=== PATIENT | female | born 1940 | race Caucasian/White ===

== ENCOUNTER → 2017-11-10 10:26 | Outpatient (CLI) | payer MEDICARE, SELFPAY ==
[2017-11-10 14:24] LABS: Basophils # 0.1 K/mm3 (0-0.2); Basophils % 1.1 % (0.1-2.0); Eosinophils # 0.1 K/mm3 (0.0-0.4); Hematocrit 46.6 % (37.0-47.0); Hemoglobin 15.3 g/dL (12.2-16.2); Lymphocytes # 1.8 K/mm3 (0.7-4.5); Mean Corpuscular HGB Conc 32.9 g/dL (31.8-35.4); Mean Corpuscular Hemoglobin 30.8 pg (27.0-31.2); Mean Corpuscular Volume 93.6 fl (81-99); Mean Platelet Volume 8.3 fl (7.4-10.4); Monocytes # 0.6 K/mm3 (0.1-1.0); Neutrophils # 6.6 K/mm3 (1.8-7.8); Neutrophils % 71.9 % (37.0-80.0); Platelet Count 360 K/mm3 (142-424); Red Blood Count 4.98 M/mm3 (4.20-5.40); Red Cell Distribution Width 12.7 % (11.5-17.5); White Blood Count 9.2 K/mm3 (4.8-10.8)
[2017-11-10 15:10] LABS: Alanine Aminotransferase 37 U/L (12-78); Albumin Level 4.7 gm/dL (3.4-5.0); Albumin/Globulin Ratio 1.5 (1.1-1.8); Alkaline Phosphatase 111 U/L (46-116); Anion Gap 20.3 mEq/L (5-15); Aspartate Amino Transferase 31 U/L (15-37); Bilirubin,Total 0.6 mg/dL (0.2-1.0); Blood Urea Nitrogen 11 mg/dL (7-18); Calcium 9.9 mg/dL (8.5-10.1); Carbon Dioxide 23 mmol/L (21.0-32.0); Chloride 98 mmol/L (98-107); Chol/HDL Ratio 2.8 (1-3.5); Cholesterol 160 mg/dL (140-200); Creatinine,Serum 0.99 mg/dL (0.55-1.02); Estimated Glomerular Filt Rate 55 ml/min (>60); GFR (African American) 66 ML/MIN (>60); Globulin 3.1 gm/dl (1.3-3.2); Glucose 84 mg/dL (74-106); HDL Cholesterol 58 mg/dL (29-89); LDL Cholesterol 85 mg/dL (0-130); Potassium 4.3 mmoL/L (3.5-5.1); Sodium 137 mmol/L (136-145); Total Protein,Serum 7.8 gm/dL (6.4-8.2); Triglycerides 85 mg/dL (30-200); VLDL Cholesterol 17 mg/dL (0-40)
[2017-11-10 18:25] LABS: T4 (Thyroxine) 11.9 ug/dl (4.7-13.3)
[2017-11-11 20:14] LABS: Vitamin D 25 Hydroxy 31.8 ng/mL (30.0-100.0)
== END ==
PROVIDERS: Visit Provider Emergency Medicine
DX: R53.83 Other fatigue (principal); I10 Essential (primary) hypertension
CPT/HCPCS: 80053; 80061; 82652; 84436; 84443; 85025

== ENCOUNTER → 2018-10-01 13:41 | Outpatient (CLI) | payer MEDICARE, SELFPAY ==
[2018-10-01 14:23] LABS: Alanine Aminotransferase 32 U/L (12-78); Albumin Level 4.2 gm/dL (3.4-5.0); Albumin/Globulin Ratio 1.4 (1.1-1.8); Alkaline Phosphatase 103 U/L (46-116); Anion Gap 14.8 mEq/L (5-15); Aspartate Amino Transferase 31 U/L (15-37); Bilirubin,Total 0.6 mg/dL (0.2-1.0); Blood Urea Nitrogen 13 mg/dL (7-18); Carbon Dioxide 25 mmol/L (21.0-32.0); Chloride 103 mmol/L (98-107); Chol/HDL Ratio 3.2 (1-3.5); Cholesterol 175 mg/dL (140-200); Creatinine,Serum 1.09 mg/dL (0.55-1.02); Estimated Glomerular Filt Rate 49 ml/min (>60); GFR (African American) 59 ML/MIN (>60); Globulin 3.1 gm/dl (1.3-3.2); Glucose 87 mg/dL (74-106); HDL Cholesterol 54 mg/dL (29-89); LDL Cholesterol 107 mg/dL (0-130); Potassium 3.8 mmoL/L (3.5-5.1); Sodium 139 mmol/L (136-145); Thyroid Stimulating Hormone 0.98 uIU/ml (0.358-3.740); Total Protein,Serum 7.3 gm/dL (6.4-8.2); Triglycerides 71 mg/dL (30-200); VLDL Cholesterol 14 mg/dL (0-40)
[2018-10-01 14:32] LABS: Basophils # 0.1 K/mm3 (0-0.2); Basophils % 0.9 % (0.1-2.0); Eosinophils # 0.2 K/mm3 (0.0-0.4); Eosinophils % 1.5 % (0.1-12.0); Hematocrit 44.9 % (37.0-47.0); Hemoglobin 14.4 g/dL (12.2-16.2); Lymphocytes # 2.2 K/mm3 (0.7-4.5); Lymphocytes % 22.2 % (10-50); Mean Corpuscular HGB Conc 32.1 g/dL (31.8-35.4); Mean Corpuscular Hemoglobin 30.3 pg (27.0-31.2); Mean Corpuscular Volume 94.2 fl (81-99); Mean Platelet Volume 8.1 fl (7.4-10.4); Monocytes # 0.5 K/mm3 (0.1-1.0); Monocytes % 4.8 % (1.7-9.3); Neutrophils # 7.1 K/mm3 (1.8-7.8); Neutrophils % 70.6 % (37.0-80.0); Platelet Count 355 K/mm3 (142-424); Red Blood Count 4.76 M/mm3 (4.20-5.40); Red Cell Distribution Width 13.3 % (11.5-17.5)
[2018-10-03 07:57] LABS: Vitamin D 25 Hydroxy 27.3 ng/mL (30.0-100.0)
== END ==
PROVIDERS: Visit Provider Emergency Medicine
DX: I10 Essential (primary) hypertension (principal); E55.9 Vitamin D deficiency, unspecified
CPT/HCPCS: 80053; 80061; 82652; 84439; 84443; 85025

== ENCOUNTER → 2019-11-22 13:17 | Outpatient (CLI) | payer MEDICARE, SELFPAY ==
[2019-11-22 14:53] LABS: Basophils # 0.1 K/mm3 (0-0.2); Basophils % 0.8 % (0.1-2.0); Eosinophils # 0.1 K/mm3 (0.0-0.4); Eosinophils % 1.4 % (0.1-12.0); Hematocrit 45.4 % (37.0-47.0); Hemoglobin 14.5 g/dL (12.2-16.2); Lymphocytes # 1.8 K/mm3 (0.7-4.5); Lymphocytes % 18.9 % (10-50); Mean Corpuscular Hemoglobin 29.2 pg (27.0-31.2); Mean Corpuscular Volume 91.4 fl (81-99); Mean Platelet Volume 8.1 fl (7.4-10.4); Monocytes # 0.6 K/mm3 (0.1-1.0); Monocytes % 6.5 % (1.7-9.3); Neutrophils # 6.9 K/mm3 (1.8-7.8); Neutrophils % 72.3 % (37.0-80.0); Platelet Count 398 K/mm3 (142-424); Red Blood Count 4.96 M/mm3 (4.20-5.40); Red Cell Distribution Width 14.2 % (11.5-17.5); White Blood Count 9.6 K/mm3 (4.8-10.8)
[2019-11-22 15:05] LABS: Alanine Aminotransferase 17 U/L (12-78); Albumin Level 5.1 g/dl (3.5-5.0); Alkaline Phosphatase 115 U/L (38-126); Anion Gap 12.1 mEq/L (5-15); Aspartate Amino Transferase 33 U/L (14-36); Bilirubin,Total 0.6 mg/dl (0.2-1.3); Blood Urea Nitrogen 14 mg/dl (7-17); Calcium 9.5 mg/dl (8.4-10.2); Carbon Dioxide 25 mmol/L (22.0-30.0); Chloride 101 mmol/L (98-107); Estimated Glomerular Filt Rate 61 ml/min (>60); GFR (African American) 73 ML/MIN (>60); Globulin 2.5 g/dL (1.3-3.2); Glucose 100 mg/dl (74-100); Potassium 4.1 mmoL/L (3.5-5.1); Sodium 134 mmol/L (136-145); Total Protein,Serum 7.6 g/dl (6.3-8.2)
[2019-11-22 15:20] LABS: T4 (Thyroxine) 11.3 ug/dl (5.53-11.0)
[2019-11-22 15:33] LABS: Thyroid Stimulating Hormone 0.99 uIU/mL (0.465-4.68)
[2019-11-23 08:15] LABS: Vitamin D 25 Hydroxy 79.6 ng/mL (30.0-100.0)
== END ==
PROVIDERS: Visit Provider Emergency Medicine
DX: E55.9 Vitamin D deficiency, unspecified (principal); I10 Essential (primary) hypertension
CPT/HCPCS: 80053; 82652; 84436; 84443; 85025

== ENCOUNTER → 2021-03-24 14:05 | Outpatient (CLI) | payer MEDICARE, SELFPAY ==
[2021-03-24 14:25] LABS: Alanine Aminotransferase 17 U/L (12-78); Albumin Level 4.4 g/dl (3.5-5.0); Albumin/Globulin Ratio 1.5 (1.1-1.8); Alkaline Phosphatase 102 U/L (38-126); Anion Gap 15.2 mEq/L (5-15); Aspartate Amino Transferase 31 U/L (14-36); Bilirubin,Total 0.7 mg/dl (0.2-1.3); Blood Urea Nitrogen 7 mg/dl (7-17); Calcium 9.6 mg/dl (8.4-10.2); Carbon Dioxide 25 mmol/L (22.0-30.0); Chloride 99 mmol/L (98-107); Chol/HDL Ratio 3.6 (1-3.5); Cholesterol 204 mg/dl (140-200); Estimated Glomerular Filt Rate 69 ml/min (>60); GFR (African American) 84 ML/MIN (>60); Globulin 2.9 g/dL (1.3-3.2); Glucose 94 mg/dl (74-100); HDL Cholesterol 56 mg/dl (40-60); Potassium 4.2 mmoL/L (3.5-5.1); Sodium 135 mmol/L (136-145); Total Protein,Serum 7.3 g/dl (6.3-8.2); Triglycerides 101 mg/dl (30-150); VLDL Cholesterol 20 mg/dL (0-40)
[2021-03-24 14:26] LABS: Basophils # 0.1 K/mm3 (0-0.2); Basophils % 1.1 % (0.1-2.0); Eosinophils # 0.1 K/mm3 (0.0-0.4); Eosinophils % 0.8 % (0.1-12.0); Hematocrit 45.9 % (37.0-47.0); Hemoglobin 14.9 g/dL (12.2-16.2); Lymphocytes # 1.9 K/mm3 (0.7-4.5); Lymphocytes % 23.3 % (10-50); Mean Corpuscular HGB Conc 32.4 g/dL (31.8-35.4); Mean Corpuscular Hemoglobin 30.7 pg (27.0-31.2); Mean Corpuscular Volume 94.6 fl (81-99); Mean Platelet Volume 8.9 fl (7.4-10.4); Monocytes # 0.5 K/mm3 (0.1-1.0); Monocytes % 6.5 % (1.7-9.3); Neutrophils # 5.6 K/mm3 (1.8-7.8); Neutrophils % 68.3 % (37.0-80.0); Platelet Count 440 K/mm3 (142-424); Red Blood Count 4.85 M/mm3 (4.20-5.40); Red Cell Distribution Width 13.4 % (11.5-17.5); White Blood Count 8.2 K/mm3 (4.8-10.8)
[2021-03-24 14:35] LABS: Direct LDL Cholesterol 120.38 mg/dL (100-129)
[2021-03-24 14:42] LABS: Free T4 (Free Thyroxine) 1.24 ng/dl (0.78-2.19)
[2021-03-24 14:56] LABS: Thyroid Stimulating Hormone 0.64 uIU/mL (0.465-4.68)
== END ==
PROVIDERS: Visit Provider Emergency Medicine
DX: E55.9 Vitamin D deficiency, unspecified (principal); I10 Essential (primary) hypertension; R53.83 Other fatigue
CPT/HCPCS: 80053; 80061; 82306; 84439; 84443; 85025

== ENCOUNTER 2021-08-23 04:23 | Emergency (ER) | payer MEDICARE, SELFPAY ==
[2021-08-23 04:25] VITALS: BP 169/74; PULSE 82; RESP 16; TEMP 36.8; O2SAT 99; BMI 16.2
--- NOTE | 2021-08-23 04:35 | XR_ITS ---
PROCEDURE INFORMATION: Exam: XR Left Elbow Exam date and time: 08/23/2021 4:35 AM Age: 81 years old Clinical indication: Injury or trauma; Fall; Blunt trauma (contusions or hematomas); Elbow; Left; Injury date: 08/23/2021 TECHNIQUE: Imaging protocol: XR Left elbow. Views: 1 or 2 views. COMPARISON: No relevant prior studies available. FINDINGS: Bones/joints: No acute fracture. No dislocation. No significant joint effusion. Soft tissues: Unremarkable. IMPRESSION: No fracture.
--- NOTE | 2021-08-23 04:35 | XR_ITS ---
PROCEDURE INFORMATION: Exam: XR Left Shoulder Exam date and time: 08/23/2021 4:35 AM Age: 81 years old Clinical indication: Injury or trauma; Fall; Blunt trauma (contusions or hematomas); Shoulder; Left; Injury date: 08/23/2021 TECHNIQUE: Imaging protocol: XR Left shoulder. Views: 2 or more views. COMPARISON: No relevant prior studies available. FINDINGS: Bones/joints: Impacted, angulated fracture surgical neck of humerus. No dislocation. Lungs: Few calcified hilar lymph nodes. Few probable granulomas within LEFT lung. Soft tissues: Soft tissue swelling. IMPRESSION: LEFT proximal humeral fracture.
--- NOTE | 2021-08-23 04:35 | XR_ITS ---
PROCEDURE INFORMATION: Exam: XR Left Humerus Exam date and time: 08/23/2021 4:35 AM Age: 81 years old Clinical indication: Injury or trauma; Fall; Blunt trauma (contusions or hematomas); Arm, upper; Left; Injury date: 08/23/2021 TECHNIQUE: Imaging protocol: XR Left humerus. Views: 2 or more views. COMPARISON: No relevant prior studies available. FINDINGS: Bones/joints: Impacted, angulated fracture surgical neck of humerus. No dislocation. Lungs: Few calcified hilar lymph nodes. Few probable granulomas within LEFT lung. Soft tissues: Soft tissue swelling. IMPRESSION: LEFT proximal humeral fracture.
--- NOTE | 2021-08-23 04:40 | HMH.EDGENADL ---
ED Disposition Clinical Impression: Closed fracture of left proximal humerus Qualifiers: Encounter type: initial encounter Fracture morphology: other fracture Fracture alignment: displaced Qualified Code(s): S42.292A - Other displaced fracture of upper end of left humerus, initial encounter for closed fracture Disposition: Home, Self-Care Condition on Discharge: Fair Instructions: How to Use a Sling, Humeral Shaft Fracture Additional Instructions: You have been evaluated for fall and shoulder pain. Diagnosed with a proximal humerus fracture. Please keep sling in place. Follow-up with orthopedics. Take Tylenol and Motrin for mild pain. Rimrock for severe pain. Zofran for nausea. Return to the emergency department for any new or worsening symptoms, pain, numbness, weakness, tingling in your hand. Prescriptions: Hydrocod/Acet 5/325 mg [Rimrock 5/325mg tablet] 1 tab PO Q6HP PRN #12 tab PRN Reason: Severe Pain Transmission Status: Sent to [facility] #[id number] ondansetron HCL [Ondansetron 4mg tab*] 4 mg PO TIDP PRN #12 tab PRN Reason: Nausea Transmission Status: Pending to [facility] #[id number] Referrals: Breezy Echevarria MD [Primary Care Provider] - Kvng Napoles MD [Staff Physician] - Time of Disposition: 05:02 - Critical Care Critical Care Time: No Attestation: On 08/23/21, the high probability of a clinically significant, sudden or life threatening deterioration of the following system(s) required my full and direct attention, intervention and personal management. The time I documented below is in addition to time spent performing reported procedures but includes the following listed in this critical care notation. Medical Decision Making - Medical Records Medical records reviewed: Yes: I reviewed the patient's medical records. - Ravi Inquiry Pt receiving controlled substance: No Vital Signs: 08/23/21 04:25 Temperature 98.2 F Temperature Source Oral Pulse Rate [Right] 82 Respiratory Rate 16 Blood Pressure [Right Arm] 169/74 H Blood Pressure Mean [Right Arm] 105 02 Sat by Pulse Oximetry 99 Orders (Tests/Meds): ED MEDICATIONS Discontinued Medications Generic Name Dose Route Start Last Admin Trade Name Freq PRN Reason Stop Dose Admin Hydrocodone Bitart/Acetaminophen 1 tab 08/23/21 05:00 08/23/21 05:04 Hydrocodone/Apap 5/325 Mg Tablet PO 08/23/21 05:01 1 tab ONCE ONE Administration Ondansetron HCl 4 mg 08/23/21 05:00 08/23/21 05:04 Ondansetron 4mg Odt SL 08/23/21 05:01 4 mg ONCE ONE Administration Medical Decision Narrative: In summary this is an 81-year-old bbdul-jwnf-vhtakgps female presenting to the emergency department with left lower pain after a fall. Patient clinically stable on arrival. Vital signs within normal limits. I have concern for a proximal humerus fracture. Will obtain x-rays of the left shoulder, humerus, elbow. Patient given 5 mg oxycodone. X-rays show a proximal humerus fracture. Minimally displaced. No fracture to the greater or lesser tuberosity. No other fractures identified. Patient given a sling for comfort. Will prescribe pain medication as well as nausea medication. Recommended she follow-up with orthopedics. Likely nonoperative management. Given return precautions. Stable for discharge. General Adult HPI - General Stated complaint: Injury to left arm at home Time Seen by Provider: 08/23/21 04:30 Mode of Arrival: Ambulatory Source of Information: Patient Limitations: No Limitations - History of Present Illness HPI narrative: 81-year-old mofwh-ouww-orxfdzwm female presenting to the emergency department with left shoulder pain after a fall. She was walking outside of her home this morning when she slipped on ice and fell. She landed directly on her left shoulder. Did not strike her head. No loss of consciousness. She had immediate pain in the shoulder described as sharp and intense. Now she
--- NOTE | 2021-08-23 04:41 | PC.NURSE ---
Radiology at bedside
[2021-08-23 05:00] VITALS: BP 154/78; PULSE 90; RESP 19; O2SAT 98
[2021-08-23 05:10] VITALS: BP 152/78; PULSE 88; RESP 20; TEMP 36.6; O2SAT 97
== END 2021-08-23 05:45 | disposition home or self-care (01) ==
PROVIDERS: Emergency Provider Emergency Medicine; PCP Emergency Medicine
DX: S42.292A Other displaced fracture of upper end of left humerus, initial encounter for closed fracture (principal); W00.0XXA Fall on same level due to ice and snow, initial encounter; Y92.014 Private driveway to single-family (private) house as the place of occurrence of the external cause; I10 Essential (primary) hypertension; M81.0 Age-related osteoporosis without current pathological fracture; F17.210 Nicotine dependence, cigarettes, uncomplicated; Z88.2 Allergy status to sulfonamides
CPT/HCPCS: 73030; 73060; 73070; 99282

== ENCOUNTER 2021-08-28 18:31 | Emergency (ER) | payer MEDICARE, SELFPAY ==
[2021-08-28 18:33] VITALS: BP 144/95; PULSE 92; RESP 18; TEMP 36.7; O2SAT 95; BMI 15.9
--- NOTE | 2021-08-28 19:39 | HMH.EDUTC ---
[facility] Disposition Clinical Impression: Closed fracture of left proximal humerus Qualifiers: Encounter type: initial encounter Fracture morphology: unspecified fracture morphology Qualified Code(s): S42.202A - Unspecified fracture of upper end of left humerus, initial encounter for closed fracture Disposition: Home, Self-Care Condition on Discharge: Good Instructions: How to Use a Sling, Humeral Shaft Fracture Additional Instructions: Rest the extremity, Elevate the extremity as tolerated while you are resting. Take the prescribed hydrocodone for pain. If nausea limits your ability to take it you could try to take the zofran before you take the pain medication. If this still does not allow you to take the hydrocodone then you could take ibuprofen or plain tylenol. But, with this type of fracture, you will probably experience pain that is not well controlled with plain tylenol or ibuprofen. Let Dr. Napoles's office know about the issues you are having with the pain meds and the swelling first thing Monday. Dr. Napoles may want to prescribe you something else for pain or he may want to see you to recheck your arm. Follow up with Dr. Napoles (orthopedics). Follow up with your regular doctor. GO TO THE ER FOR ANY WORSENING SYMPTOMS, ESPECIALLY WORSENING SWELLING, BRUISING, NUMBNESS, ETC Prescriptions: Ondansetron [Zofran 4mg ODT] 4 mg PO Q8HP PRN #20 tab PRN Reason: Nausea Transmission Status: Pending to [facility] #[id number] Referrals: Breezy Echevarria MD [Primary Care Provider] - Time of Disposition: 20:20 Medical Decision Making - Medical Records Medical records reviewed: No: I reviewed the patient's medical records. - Ravi Inquiry Pt receiving controlled substance: No Vital Signs: 08/28/21 18:33 08/28/21 20:38 Temperature 98.1 F 98.1 F Temperature Source Oral Pulse Rate 92 H Pulse Rate [Right Radial] 92 H Respiratory Rate 18 18 Blood Pressure 144/95 H Blood Pressure [Right Arm] 144/95 H Blood Pressure Mean [Right Arm] 111 Blood Pressure Source [Right Arm] Automatic Cuff Blood Pressure Position [Right Arm] Sitting 02 Sat by Pulse Oximetry 95 Oxygen Delivery Method Room Air [facility] HPI - General Stated complaint: Broke shoulder 08/23, pain, bruising, swelling Time Seen by Provider: 08/28/21 19:39 Mode of Arrival: Ambulatory Source of Information: Patient Limitations: No Limitations Description of Symptoms (Recalled from Triage Doc. by RN): Pt broke her left humerous monday, saw monday. She arrives today with c/o bruising to left humerous. Pt has good radial pulses and no abnormal sensations. - History of Present Illness Provider Complaint: She fell on on 08/23 on ice and came down on her left shoulder. She fractured her proximal left humerus. She came to the ER and had x-rays done. She was diagnosed with the humerus fracture and referred to orthopedics (Dr. Napoles). She saw Dr. Napoles on 08/24. She was prescribed hydrocodone for pain and told to f/u in the office in 2 weeks. She states that her left arm is swollen more and bruised more that it has been. She states that she has not been able to take the prescribed hydrocodone very much because it has caused nausea. She has taken zofran with it and it still caused her too much nausea to take it much. She denies any numbness of her hand or forearm. - Related Data Home Medications Medication Instructions Recorded Confirmed multivitamin,[id number] 1 tab PO QDAY 08/15/17 08/24/21 Previous Rx's Medication Instructions Recorded ergocalciferol (vitamin D2) 1,250 See Rx Instructions .ROUTE 06/23/21 mcg (50,000 unit) capsule .COMPLEX #13 cap lisinopril 2.5 mg tablet 2.5 mg PO DAILY #90 tab 06/23/21 propranolol 10 mg tablet 10 mg PO DAILY #90 tab 06/23/21 norethindrone acetate 1 mg-ethinyl See Rx Instructions .ROUTE 08/19/21 estradiol 5 mcg tablet .COMPLEX #90 tab ondansetron HCL [Ondansetron 4mg 4 mg PO TID
[2021-08-28 20:38] VITALS: BP 144/95; PULSE 92; RESP 18; TEMP 36.7
== END 2021-08-28 20:39 | disposition home or self-care (01) ==
PROVIDERS: Emergency Provider Nurse Practitioner Family; PCP Emergency Medicine
DX: S42.202D Unspecified fracture of upper end of left humerus, subsequent encounter for fracture with routine healing (principal); R11.0 Nausea; I10 Essential (primary) hypertension; M81.0 Age-related osteoporosis without current pathological fracture; F17.210 Nicotine dependence, cigarettes, uncomplicated; Z88.2 Allergy status to sulfonamides
CPT/HCPCS: G0463; 99202

== ENCOUNTER → 2021-09-07 12:53 | Outpatient (CLI) | payer MEDICARE, SELFPAY ==
--- NOTE | 2021-09-07 12:59 | XR_ITS ---
FINAL REPORT CLINICAL HISTORY: left proximal humerus fracture Aug 23...pain COMPARISON: August 23, 2021 FINDINGS: 3 views of the left shoulder were obtained. There is increased callus formation with persistent mild angular deformity of the surgical neck of the humerus. The humeral head relates to the bony glenoid in a normal fashion. The AC joint is intact. IMPRESSION: Healing fracture of the surgical neck. Reviewed, Interpreted and Dictated by Kostas Magdaleno MD Transcribed by Andrea Turcios Authenticated by Kostas Magdaleno MD on 09/07/2021 03:26:16 PM [facility]
== END ==
PROVIDERS: PCP Emergency Medicine; Visit Provider Orthopaedic Surgery
DX: S42.202A Unspecified fracture of upper end of left humerus, initial encounter for closed fracture (principal)
CPT/HCPCS: 73030

== ENCOUNTER → 2021-09-30 09:08 | Outpatient (CLI) | payer MEDICARE, SELFPAY ==
--- NOTE | 2021-09-30 09:15 | XR_ITS ---
PROCEDURE INFORMATION: Exam: XR Left Shoulder Exam date and time: 09/30/2021 9:17 AM Age: 81 years old Clinical indication: Pain; Shoulder; Left; Additional info: Internal, external, scap y vies TECHNIQUE: Imaging protocol: XR Left shoulder. Views: 2 or more views. COMPARISON: CR XR SHOULDER LT MIN 2V 09/07/2021 1:05 PM FINDINGS: Bones/joints: As noted previously is deformity of the proximal humerus with mild callus formation. There is no evidence of joint malalignment or dislocation. Soft tissues: No soft tissue swelling. IMPRESSION: 1. As noted previously is deformity of the proximal humerus with mild callus formation. Findings are most consistent with healing fracture. 2. No evidence of acute dislocation.
== END ==
PROVIDERS: PCP Emergency Medicine; Visit Provider Orthopaedic Surgery
DX: S42.202A Unspecified fracture of upper end of left humerus, initial encounter for closed fracture (principal)
CPT/HCPCS: 73030

== ENCOUNTER → 2021-10-05 08:52 | Outpatient (CLI) | payer MEDICARE, SELFPAY ==
--- NOTE | 2021-10-05 08:52 | XR_ITS ---
FINAL REPORT TECHNIQUE: Bone densitometry calculations of the lumbar spine and left hip were obtained. CLINICAL HISTORY: . post menopausal screening FINDINGS: Using L1-4, the bone mineral density of the spine is 1.134 g/cm2, corresponding to T-score of 0.8. These values may be falsely elevated secondary to hypertrophic change. Using the left hip, the bone mineral density of the femoral neck is 0.655 g/cm2, corresponding to a T-score of -2.4. Using the right hip, the bone mineral density of the femoral neck is 0.572 g/cm2, corresponding to a T-score of -2.5. NOTE: T-score: Standard deviation compared with peak bone mass of young adult mean. *Following the recommendations of the International Society of Bone Densitometry, classification of hip BMD is based on the lower of two T-scores; total hip or femoral neck. IMPRESSION: Osteoporosis: Lowest T-score is at or below -2.5. This patient's T-score meets the World Health Organization criteria for osteoporosis. Reviewed, Interpreted and Dictated by Kostas Magdaleno MD Transcribed by Sandra Renner Authenticated by Kostas Magdaleno MD on 10/05/2021 11:26:25 AM [facility]
== END ==
PROVIDERS: PCP Emergency Medicine; Visit Provider Orthopaedic Surgery
DX: S42.202A Unspecified fracture of upper end of left humerus, initial encounter for closed fracture (principal); M81.0 Age-related osteoporosis without current pathological fracture
CPT/HCPCS: 77080

== ENCOUNTER 2021-11-02 15:00 | Outpatient (RCR) | payer MEDICARE, SELFPAY ==
--- NOTE | 2021-09-13 13:54 | HMH.OTOPEV ---
OT Inpatient Evaluation Rehab OT Outpatient Eval Start: 09/13/21 13:06 Freq: Status: Active Protocol: Document 09/13/21 13:06 MIRTHA (Rec: 09/13/21 13:54 MIRTHA [id number]) Electronically Signed By Fabby Stewart OT 09/13/21 13:06 Outpatient Therapy Subjective History Subjective History 81 year old female referred to skilled OP OT services for left proximal humerus fx. Patient fell on ice at home on 08/23/21 that was proximally 3 weeks. f/u with ortho in 3 weeks. Chief Complaint Pain,Weakness,Decreased Audio Video Tech Strength Symptom Type Ache,Throb,Sharp Symptoms Relieved By Nothing Symptoms Aggravated By Physical Activity Prior Functional Limitations None Current Functional Limitations Reaching,Lifting,Housework, Dressing,Sleeping,Recreation Activity Symptom Description Constant and Continuous Level of pain today (0-10) 5 Pain scale - at its best (0-10) 5 Pain scale - at its worst (0-10) 7 Shoulder/Elbow Eval Shoulder Objective Measurements Shoulder ROM Left Shoulder Abduction Active Range of 10 Motion (degrees) Shoulder Flexion Active Range of Motion 5 (degrees) Query Text: Shoulder External Rotation Active Range 0 of Motion (degrees) Shoulder Internal Rotation Active Range 0 of Motion (degrees) pain with active ROM shoulder exam left standard Shoulder MMT Shoulder Abduction Strength Grade 2 Poor Shoulder Extension Strength Grade 2 Poor Shoulder Flexion Strength Grade 2 Poor Shoulder Horizontal Abduction Strength 2 Poor Grade Shoulder Horizontal Adduction Strength 2 Poor Grade Infraspinatus/Teres Minor Strength Grade 2 Poor Shoulder External Rotation Strength 2 Poor Grade Shoulder Internal Rotation Strength 2 Poor Grade Elbow Objective Measurements Wrist/Hand Eval Audio Video Tech/Pinch Strength Right Audio Video Tech Strength Measurement (lbs) 45 Left Audio Video Tech Strength Measurement (lbs) 35 OT Outpatient Assessment Impairments Problems/Impairments Impaired Range of Motion, Impaired Strength,Subjective C /O Pain Prognosis Rehab Potential Good Clinical Impression Consistent with Diagnosis Yes Short Term Goals Number of Weeks 2 Increase Range of Motion Yes: AROM of L UE shld flex:
--- NOTE | 2021-10-20 16:02 | HMH.RHREAS ---
Rehab Reassessment Rehab OP Re-assessment Start: 10/20/21 15:00 Freq: Status: Active Protocol: Document 10/20/21 15:51 MIRTHA (Rec: 10/20/21 16:02 MIRTHA [id number]) Electronically Signed By Fabby Stewart OT 10/20/21 15:51 Rehab Re-assessment Subjective Subjective My arm is moving better. Objective Objective Notes Patient has participated well in skilled OP OT services since evaluation for 4 visits. Patient unable to attend two visits 2* schedule conflicts. However during each visit that patient attended, Patient participated in L UE AAROM, AROM, strengthening, pain mgt and bead wire insulator strengthening inorder to return to functional status. Assessment Progress Assessment Progressing as Expected Assessment Notes Evaluation on 09/13/21 L UE shld AROM flex: 5 abd: 10 er: 0 ir: 0 7/10 pain at worst 2/5 shoulder strength throughout L hand: 35# R hand: 45# Re-assessment on 10/20/21 L UE shld AROM flex: 95 abd: 105 er: 70 ir: 50 3/10 pain at worst 3-/5 shoulder strength throughout L hand: 40# R hand: 50# Patient goals met All goals met. Upgrade goals. Goals Not Met n/a Revised Goals L UE shld AROM flex: 130 abd: 130 er: 80 ir: 60 2/10 pain at worst 3/5 to 3+/5 shoulder strength throughout L hand: 45# R hand: 50# Plan Plan Continue POC Frequency of Therapy 2x/wk Duration of therapy 4 weeks Time and Billing Re-Eval Time 10 Re-Eval Tahir
== END 2021-11-02 15:05 | disposition home or self-care (01) ==
LOC: OT 15:00
PROVIDERS: PCP Emergency Medicine; Visit Provider Orthopaedic Surgery
DX: S42.202D Unspecified fracture of upper end of left humerus, subsequent encounter for fracture with routine healing (principal)
CPT/HCPCS: 97010; 97014; 97110; 97140; 97164; 97165; 97530; G0283

== ENCOUNTER → 2021-11-10 09:37 | Outpatient (CLI) | payer MEDICARE, SELFPAY ==
--- NOTE | 2021-11-10 09:50 | XR_ITS ---
FINAL REPORT CLINICAL HISTORY: humerus fracture..pain COMPARISON: September 30, 2021 FINDINGS: 2 views of the left humerus were obtained. There is a healing fracture deformity of the proximal left humerus. There is half shaft width lateral displacement and impaction. The primary fracture line extends through the surgical neck of the humerus. The joint spaces appear intact. There is no acute soft tissue abnormality. IMPRESSION: Healing proximal humerus fracture, no significant change. Reviewed, Interpreted and Dictated by Kostas Magdaleno MD Transcribed by Andrea Turcios Authenticated by Kostas Magdaleno MD on 11/10/2021 10:48:43 AM [facility]
== END ==
PROVIDERS: Visit Provider Orthopaedic Surgery
DX: S42.202A Unspecified fracture of upper end of left humerus, initial encounter for closed fracture (principal)
CPT/HCPCS: 73060

== ENCOUNTER → 2021-12-29 09:38 | Outpatient (CLI) | payer MEDICARE, SELFPAY ==
--- NOTE | 2021-12-29 09:45 | XR_ITS ---
FINAL REPORT CLINICAL HISTORY: fracture FOLLOW-UP COMPARISON: 11/10/2021 FINDINGS: LEFT HUMERUS Two views were obtained. Again identified is a fracture of the surgical neck of the left humerus. There is medial rotation of the humeral head fragment. The bony alignment is stable. There appears to be partial bony fusion. IMPRESSION: Fracture as above with apparent partial bony fusion. Reviewed, Interpreted and Dictated by Brijesh Sarabia III, MD Transcribed by Mar Buckley Authenticated and [facility]
== END ==
PROVIDERS: PCP Emergency Medicine; Visit Provider Orthopaedic Surgery
DX: S42.202A Unspecified fracture of upper end of left humerus, initial encounter for closed fracture (principal)
CPT/HCPCS: 73060

== ENCOUNTER → 2022-04-25 12:13 | Outpatient (CLI) | payer MEDICARE, SELFPAY ==
--- NOTE | 2022-04-25 12:17 | XR_ITS ---
FINAL REPORT CLINICAL HISTORY: Left foot pain FINDINGS: LEFT FOOT 3 views were obtained. There is no acute fracture or dislocation. The bones are osteopenic. There are mild degenerative changes. Hallux valgus deformity is present. There is no soft tissue abnormality. IMPRESSION: No acute bony abnormality. Reviewed, Interpreted and Dictated by Brijesh Sarabia III, MD Transcribed by Naz Mccray Authenticated and . [facility]
--- NOTE | 2022-04-25 12:17 | XR_ITS ---
FINAL REPORT CLINICAL HISTORY: foot pain FINDINGS: RIGHT FOOT: Three views of the right foot were obtained. The bones are osteopenic. There is no acute fracture or dislocation. There are mild degenerative changes. There is hallux valgus deformity. There is no soft tissue abnormality. IMPRESSION: Hallux valgus deformity with mild degenerative change. Reviewed, Interpreted and Dictated by Brijesh Sarabia III, MD Transcribed by Andrea Turcios Authenticated and [facility]
== END ==
PROVIDERS: PCP Emergency Medicine; Visit Provider Podiatrist
DX: M79.671 Pain in right foot (principal); M79.672 Pain in left foot
CPT/HCPCS: 73630

== ENCOUNTER → 2022-07-04 09:10 | Outpatient (CLI) | payer MEDICARE, SELFPAY ==
[2022-07-04 13:49] LABS: Basophils # 0.1 K/mm3 (0-0.2); Basophils % 0.9 % (0.1-2.0); Eosinophils # 0.1 K/mm3 (0.0-0.4); Eosinophils % 0.7 % (0.1-12.0); Hematocrit 44.6 % (37.0-47.0); Hemoglobin 14.7 g/dL (12.2-16.2); Lymphocytes # 2.1 K/mm3 (0.7-4.5); Lymphocytes % 19.4 % (10-50); Mean Corpuscular HGB Conc 33.1 g/dL (31.8-35.4); Mean Corpuscular Volume 90.6 fl (81-99); Monocytes # 0.7 K/mm3 (0.1-1.0); Monocytes % 6.5 % (1.7-9.3); Neutrophils # 7.7 K/mm3 (1.8-7.8); Neutrophils % 72.5 % (37.0-80.0); Platelet Count 629 K/mm3 (142-424); Red Blood Count 4.92 M/mm3 (4.20-5.40); Red Cell Distribution Width 13.4 % (11.5-17.5); White Blood Count 10.7 K/mm3 (4.8-10.8)
[2022-07-04 13:55] LABS: Alanine Aminotransferase 16 U/L (12-78); Albumin Level 4.3 g/dl (3.5-5.0); Albumin/Globulin Ratio 1.7 (1.1-1.8); Alkaline Phosphatase 134 U/L (38-126); Anion Gap 11.8 mEq/L (5-15); Aspartate Amino Transferase 31 U/L (14-36); Bilirubin,Total 0.8 mg/dl (0.2-1.3); Blood Urea Nitrogen 13 mg/dl (7-17); Calcium 9.6 mg/dl (8.4-10.2); Carbon Dioxide 28 mmol/L (22.0-30.0); Chloride 98 mmol/L (98-107); Chol/HDL Ratio 2.9 (1-3.5); Cholesterol 172 mg/dl (140-200); Estimated Glomerular Filt Rate 60 ml/min (>60); GFR (African American) 73 ML/MIN (>60); Globulin 2.6 g/dL (1.3-3.2); Glucose 66 mg/dl (74-100); HDL Cholesterol 59 mg/dl (40-60); Potassium 3.8 mmoL/L (3.5-5.1); Sodium 134 mmol/L (136-145); Total Protein,Serum 6.9 g/dl (6.3-8.2); Triglycerides 75 mg/dl (30-150); VLDL Cholesterol 15 mg/dL (0-40)
[2022-07-04 14:10] LABS: 25-OH Vitamin D, Total 68.9 ng/mL (30-100)
[2022-07-04 14:11] LABS: Free T4 (Free Thyroxine) 1.25 ng/dl (0.78-2.19)
[2022-07-04 14:25] LABS: Thyroid Stimulating Hormone 1.77 uIU/mL (0.465-4.68)
== END ==
PROVIDERS: PCP Emergency Medicine; Visit Provider Emergency Medicine
DX: I10 Essential (primary) hypertension (principal); G25.0 Essential tremor; E55.9 Vitamin D deficiency, unspecified
CPT/HCPCS: 80053; 80061; 82306; 84439; 84443; 85025

== ENCOUNTER → 2022-07-22 09:40 | Outpatient (CLI) | payer MEDICARE, SELFPAY ==
[2022-07-22 09:52] LABS: MANUAL DIFFERENTIAL MANUAL DIFFERENTIAL (MANUAL DIFF)
[2022-07-22 10:06] LABS: Basophils # 0.2 K/mm3 (0-0.2); Basophils % 1.5 % (0.1-2.0); Eosinophils # 0.2 K/mm3 (0.0-0.4); Eosinophils % 1.8 % (0.1-12.0); Hemoglobin 14.6 g/dL (12.2-16.2); Lymphocytes % 21.3 % (10-50); Mean Corpuscular HGB Conc 32.5 g/dL (31.8-35.4); Mean Corpuscular Volume 92.3 fl (81-99); Mean Platelet Volume 6.7 fl (7.4-10.4); Monocytes # 0.6 K/mm3 (0.1-1.0); Monocytes % 5.7 % (1.7-9.3); Neutrophils # 6.7 K/mm3 (1.8-7.8); Neutrophils % 69.6 % (37.0-80.0); Platelet Count 440 K/mm3 (142-424); Red Blood Count 4.87 M/mm3 (4.20-5.40); White Blood Count 9.6 K/mm3 (4.8-10.8)
[2022-07-22 10:40] LABS: Lymphocytes % 20 % (10-50); Monocytes % 5 % (2-9); Neutrophils % 75 % (42-76); Platelet Estimate Normal; RBC Morphology Normal; Total Cells Counted 100
[2022-07-24 09:51] LABS: Peripheral Smear Review Scanned Result
== END ==
PROVIDERS: PCP Emergency Medicine; Visit Provider Emergency Medicine
DX: R79.89 Other specified abnormal findings of blood chemistry (principal)
CPT/HCPCS: 36415; 85007; 85014; 85018; 85048; 85049

== ENCOUNTER → 2023-01-09 10:29 | Outpatient (CLI) | payer MEDICARE, SELFPAY ==
--- NOTE | 2023-01-09 10:30 | CT_ITS ---
FINAL REPORT CLINICAL HISTORY: lung cancer screening, smoker, 1 pk per day x 60 yrs FINDINGS: CT CHEST LOW DOSE SCREENING HISTORY: Screening exam for lung cancer. Current smoker, 60 pack year smoking history DOSE: CTDIvol: 2.9 mGy, DLP: 107.07 mGy*cm COMPARISON: None . TECHNIQUE: Axial CT without IV contrast administration using low dose protocol FINDINGS: Multiple calcified granulomas are present in the lung roberts bilaterally. There is moderate emphysema noted. Seen best on axial image number 47 there is another 4 mm right lower lobe nodule seen best on axial image number 50 there is a 3 mm right lower lobe nodule best seen on image number 57 there are several other less than 5 mm in diameter nodules noted. There is low attenuation in the left adrenal gland favor adenoma.. No pleural or pericardial effusion is seen . No adenopathy or mass lesion is present . IMPRESSION: 1. Multiple nodules identified as described above. This places the lung rads category S category 2 and would recommend 12 month follow-up. Moderate emphysema and multiple calcified granulomas present. Left adrenal gland density favor adenoma. LUNG RADS CATEGORY 2 RECOMMENDATION: 12 month LDCT follow up Reviewed, Interpreted and Dictated by Brijesh Sarabia III, MD Transcribed by Sammi Villela Authenticated and [facility]
== END ==
LOC: RAD 10:30
PROVIDERS: PCP Emergency Medicine; Visit Provider Emergency Medicine
DX: J44.9 Chronic obstructive pulmonary disease, unspecified (principal); Z87.891 Personal history of nicotine dependence
CPT/HCPCS: 71271

== ENCOUNTER → 2023-06-19 23:00 | Outpatient (CLI) | payer MEDICARE, SELFPAY ==
[2023-06-19 18:38] LABS: Chloride 99 mmol/L (98-107); Potassium 5.1 mmoL/L (3.5-5.1); Sodium 130 mmol/L (136-145)
[2023-06-19 18:41] LABS: Anion Gap 14.1 mEq/L (5-15); Blood Urea Nitrogen 12 mg/dl (7-17); Calcium 8.5 mg/dl (8.4-10.2); Carbon Dioxide 22 mmol/L (22.0-30.0); Estimated Glomerular Filt Rate 60 ml/min (>60); GFR (African American) 73 ML/MIN (>60); Glucose 87 mg/dl (74-100)
== END ==
PROVIDERS: PCP Student in an Organized Health Care Education/Training Program; Visit Provider Student in an Organized Health Care Education/Training Program
DX: I10 Essential (primary) hypertension (principal); Z72.0 Tobacco use
CPT/HCPCS: 80048

== ENCOUNTER → 2023-06-20 09:16 | Outpatient (CLI) | payer MEDICARE, SELFPAY ==
--- NOTE | 2023-06-20 09:17 | CA_ITS ---
FINAL REPORT CLINICAL HISTORY: BLE EDEMA COMPARISON: None FINDINGS: Color Doppler, duplex Doppler and compression sonography of the bilateral lower extremities was performed. There is no evidence of deep venous thrombosis from the level of the groin to the calf. The deep veins are patent and compressible. IMPRESSION: No evidence of deep venous thrombosis bilateral lower extremities. Reviewed, Interpreted and Dictated by Brijesh Sarabia III, MD Transcribed by Sammi Villela Authenticated and [facility]
== END ==
PROVIDERS: PCP Internal Medicine; Visit Provider Student in an Organized Health Care Education/Training Program
DX: M79.89 Other specified soft tissue disorders (principal)
CPT/HCPCS: 93970

== ENCOUNTER → 2023-07-12 08:43 | Outpatient (CLI) | payer MEDICARE, SELFPAY ==
[2023-07-12 19:45] LABS: Basophils # 0.1 K/mm3 (0-0.2); Basophils % 0.9 % (0.1-2.0); Eosinophils # 0.2 K/mm3 (0.0-0.4); Eosinophils % 2.2 % (0.1-12.0); Hematocrit 41.6 % (37.0-47.0); Hemoglobin 13.7 g/dL (12.2-16.2); Lymphocytes # 1.9 K/mm3 (0.7-4.5); Lymphocytes % 18.4 % (10-50); Mean Corpuscular HGB Conc 32.9 g/dL (31.8-35.4); Mean Corpuscular Hemoglobin 30.7 pg (27.0-31.2); Mean Corpuscular Volume 93.4 fl (81-99); Mean Platelet Volume 8.3 fl (7.4-10.4); Monocytes # 0.8 K/mm3 (0.1-1.0); Monocytes % 7.3 % (1.7-9.3); Neutrophils # 7.2 K/mm3 (1.8-7.8); Neutrophils % 71.1 % (37.0-80.0); Platelet Count 489 K/mm3 (142-424); Red Blood Count 4.45 M/mm3 (4.20-5.40); Red Cell Distribution Width 13.5 % (11.5-17.5); White Blood Count 10.2 K/mm3 (4.8-10.8)
[2023-07-12 20:17] LABS: Alanine Aminotransferase 28 U/L (12-78); Albumin Level 4.6 g/dl (3.5-5.0); Alkaline Phosphatase 140 U/L (38-126); Aspartate Amino Transferase 43 U/L (14-36); Bilirubin,Direct 0.1 mg/dl (0.0-0.4); Bilirubin,Indirect 0.4 mg/dL (0.0-0.9); Bilirubin,Total 0.5 mg/dl (0.2-1.3); Bilirubin,Unconjugated 0.4 mg/dL (0.0-1.1); Chol/HDL Ratio 2.9 (1-3.5); Cholesterol 227 mg/dl (140-200); HDL Cholesterol 77 mg/dl (40-60); Total Protein,Serum 7.6 g/dl (6.3-8.2); Triglycerides 136 mg/dl (30-150); VLDL Cholesterol 27 mg/dL (0-40)
[2023-07-12 20:26] LABS: NT Pro Brain Natriuretic Pep. 248 pg/mL (0-450)
[2023-07-12 20:29] LABS: Direct LDL Cholesterol 114.75 mg/dL (100-129)
[2023-07-12 20:47] LABS: Thyroid Stimulating Hormone 1.12 uIU/mL (0.465-4.68)
== END ==
LOC: LAB.DROPOF 07-19 08:44
PROVIDERS: PCP Family Medicine; Visit Provider Family Medicine
DX: I50.9 Heart failure, unspecified (principal); Z00.00 Encounter for general adult medical examination without abnormal findings; M79.89 Other specified soft tissue disorders; I10 Essential (primary) hypertension; R60.9 Edema, unspecified
CPT/HCPCS: 80061; 80076; 83880; 84443; 85025

== ENCOUNTER 2023-07-27 12:33 | Outpatient (CLI) | payer MEDICARE, SELFPAY ==
--- NOTE | 2023-07-27 12:34 | CA_ITS ---
APPROVED REPORT EXAM: Comprehensive 2D, Doppler, and color-flow Echocardiogram Inventory Planner: Winsome Quiroz RVT Ht: 5 ft 2 in Wt: 90lbs BSA: 1.36 BP: 150/76 mmHg Indications: HTN,EDEMA,SMOKER,COPD,EDEMA 2D Dimensions LA Volume 17.30 mL LA Volume Index 12.72 mL/m2 (M/F) 16-34 M-Mode Dimensions RVDd 2.41 cm (0.9-2.6) LA Diam 2.56 cm (1.9-4.0) LVDd 2.85 cm (3.5-5.7) LVDs 1.92 cm (3.5-5.7) IVSd 0.96 cm (0.6-1.1) PWd 0.41 cm (0.6-1.1) EF (Teich) 62.80% FS 32.60% EDV (Teich) 30.90 mL TAPSE 2.13 (<1.7) ESV (Teich) 11.50 mL LV Diastology E Decel Time 150 (160-240 msec) E/A Ratio 0.7 Aortic Valve FERNANDA Index 1.16 cm2/m2 AoV Peak Brayan. 126.0 (50-130 cm/s) AO Peak GR. 6.30 mmHg AO Mean GR. 3.80 (<5 mmHg) AO VTI 26.6 (18-25 cm) FERNANDA (VTI) 1.61 (2.5-4.5 cm2) Mitral Valve MV E Max Brayan. 68.0 (40-130 cm/s) MV A Velocity 95.0 (40-130 cm/s) E/A Ratio 0.72 MV PHT 44.0 ms Pulmonary Valve PV Peak Velocity 73.0 (50-150 cm/s) Tricuspid Valve TR P. Velocity 216.00 cm/s RAP Estimate 10.00 mmHg RVSP 28.60 mmHg Left Ventricle The left ventricle is normal size. The left ventricular systolic function is normal. The left ventricular ejection fraction is within the normal range. There is increased LV wall thickness. There is mild hypokinesis of the basal lateral, anterolateral, and inferolateral LV peres. The left ventricular diastolic function is normal. LVEF is 55%. Right Ventricle The right ventricle is normal size. The right ventricular systolic function is normal. Atria The left atrium size is normal. The right atrium size is normal. There is no Doppler evidence of interatrial shunt. Aortic Valve The aortic valve is mildly thickened. There is no aortic valvular stenosis. Trace aortic regurgitation. Mitral Valve The mitral valve is mildly thickened. No evidence of mitral valve stenosis. Trace mitral regurgitation. Tricuspid Valve The tricuspid valve leaflets are thin and pliable. Trace tricuspid regurgitation. There is insufficient TR jet to estimate RVSP. Pulmonic Valve The pulmonary valve is normal in structure. Trace pulmonic regurgitation. Great Vessels The aortic root is normal in size. The ascending aorta is normal in size. IVC is normal in size and collapses >50% with inspiration. Pericardium There is no pericardial effusion. Other Information Study Quality: Technically Difficult Conclusion Technically difficult study due to poor acoustic windows. Normal biventricular systolic function. Mild hypokinesis of the basal lateral, anterolateral, and inferolateral LV peres. No significant valvular stenosis or regurgitation. Electronically signed by : Johanna Fraser MD 07/31/2023 00:25:49
== END 2023-07-27 23:59 ==
LOC: RT 12:34
PROVIDERS: PCP Family Medicine; Visit Provider Family Medicine
DX: I10 Essential (primary) hypertension (principal); J44.9 Chronic obstructive pulmonary disease, unspecified; Z72.0 Tobacco use; R60.0 Localized edema
CPT/HCPCS: 93306

== ENCOUNTER 2023-08-09 14:07 | Outpatient (CLI) | payer MEDICARE, SELFPAY ==
--- NOTE | 2023-08-09 14:11 | US_ITS ---
FINAL REPORT CLINICAL HISTORY: pad, smoker, htn COMPARISON: None FINDINGS: LOWER EXTREMITY SEGMENTAL PRESSURE MEASUREMENTS FINDINGS: Pressure indices are as follows: RIGHT LOWER EXTREMITY: Upper thigh: 0.95 Calf: 0.94 Ankle, posterior tibial artery: 1.21 Ankle, dorsalis pedis: 1.11 Toe: 0.77 Overall: 1.12 Comments: Normal waveforms and pulses LEFT LOWER EXTREMITY: Upper thigh: 0.85 Calf: 1.02 Ankle, posterior tibial artery: 1.14 Ankle, dorsalis pedis: 1.05 Toe: 0.67 Overall: 1.14 Comments: Normal waveforms and pulses. IMPRESSION: Normal examination. Reviewed, Interpreted and Dictated by Kostas Magdaleno MD Transcribed by Sammi Villela Authenticated and [facility]
== END 2023-08-09 23:59 ==
LOC: RT 14:08
PROVIDERS: PCP Family Medicine; Visit Provider Family Medicine
DX: I73.9 Peripheral vascular disease, unspecified (principal); I10 Essential (primary) hypertension; Z72.0 Tobacco use
CPT/HCPCS: 93923

== ENCOUNTER 2023-12-07 19:25 | Emergency (ER) | payer MEDICARE, SELFPAY ==
[2023-12-07] VITALS (12 sets, daily range): BP systolic 130–188; BP diastolic 62–101; PULSE 66–179; RESP 14–20; TEMP 36.8; O2SAT 91–97; BMI 16.0
--- NOTE | 2023-12-07 19:57 | CT_ITS ---
PROCEDURE INFORMATION: Exam: CT Cervical Spine Without Contrast Exam date and time: 12/07/2023 8:27 PM Age: 83 years old Clinical indication: Neck pain; Additional info: Fall, injury TECHNIQUE: Imaging protocol: Computed tomography of the cervical spine without contrast. Radiation optimization: All CT scans at this facility use at least one of these dose optimization techniques: automated exposure control; mA and/or kV adjustment per patient size (includes targeted exams where dose is matched to clinical indication); or iterative reconstruction. COMPARISON: CT HEAD/BRAIN WO CON 12/07/2023 8:25 PM FINDINGS: Bones: No evidence of acute cervical spine fracture or traumatic subluxation. There is advanced degenerative change throughout the cervical spine with reversal of the normal cervical lordosis spanning C3 to C6. There is advanced multilevel degenerative disc and facet disease. There is mild spinal canal stenosis at C3-C4, C5-C6, and C6-C7. Pharynx: Normal fossa of Rosenmuller. Larynx: Normal epiglottis. Symmetric vocal folds. Trachea: Retained secretions are noted in the trachea. Lungs: Lung apices are notable for centrilobular emphysema. Thyroid: Homogeneous thyroid. Soft tissues: Unremarkable. IMPRESSION: 1. No evidence of acute cervical spine fracture. 2. Advanced degenerative disc and facet disease causes relatively mild spinal stenosis at C3-C4, C5-C6, and C6-C7. Correlate with any symptoms of neurogenic claudication. 3. Centrilobular emphysema. Retained secretions are noted in the trachea.
--- NOTE | 2023-12-07 19:57 | XR_ITS ---
PROCEDURE INFORMATION: Exam: XR Left Hip Exam date and time: 12/07/2023 8:10 PM Age: 83 years old Clinical indication: Injury or trauma; Fall; Blunt trauma (contusions or hematomas); Bilateral; Pelvic region; Additional info: Fall, injury TECHNIQUE: Imaging protocol: Radiologic exam of the left hip. Views: 2 or 3 views hip with pelvis when performed. COMPARISON: No relevant prior studies available. FINDINGS: Bones/joints: Left subcapital femoral neck fracture with anterior/superior displacement. Soft tissues: Unremarkable. IMPRESSION: Left subcapital femoral neck fracture with anterior/superior displacement.
--- NOTE | 2023-12-07 19:57 | CT_ITS ---
PROCEDURE INFORMATION: Exam: CT Head Without Contrast Exam date and time: 12/07/2023 8:25 PM Age: 83 years old Clinical indication: Pain; Other: Fall; Additional info: Fall head injury TECHNIQUE: Imaging protocol: Computed tomography of the head without contrast. Radiation optimization: All CT scans at this facility use at least one of these dose optimization techniques: automated exposure control; mA and/or kV adjustment per patient size (includes targeted exams where dose is matched to clinical indication); or iterative reconstruction. COMPARISON: No relevant prior studies available. FINDINGS: Brain: Diffuse cerebral volume loss noted throughout. Low attenuation noted in the white matter. No mass effect. No intra-axial or extra-axial hemorrhage. Preserved aguirre-white interfaces. Cerebral ventricles: Mild ex vacuo ventriculomegaly. Paranasal sinuses: Visualized sinuses are unremarkable. No fluid levels. Mastoid air cells: Visualized mastoid air cells are well aerated. Orbital cavities: Changes of prior cataract surgery noted. Bones: No destructive lesion. No acute fracture. Soft tissues: Unremarkable. IMPRESSION: No evidence of acute intracranial hemorrhage, mass effect, or edema. Age expected involutional change.
--- NOTE | 2023-12-07 19:58 | XR_ITS ---
PROCEDURE INFORMATION: Exam: XR Chest Exam date and time: 12/07/2023 8:10 PM Age: 83 years old Clinical indication: Injury or trauma; Fall; Blunt trauma (contusions or hematomas); Additional info: Fall, injury TECHNIQUE: Imaging protocol: Radiologic exam of the chest. Views: 1 view. COMPARISON: CT LUNG SCREENING 01/09/2023 10:56 AM FINDINGS: Lungs: No consolidation. Left midlung calcified granulomas. Pleural spaces: No pleural effusion. No pneumothorax. Heart/Mediastinum: No cardiomegaly. Calcified atherosclerotic changes of the thoracic aorta. Bones/joints: Unremarkable. IMPRESSION: No acute pulmonary findings.
--- NOTE | 2023-12-07 20:00 | HMH.EDGENADL ---
Discharge Plan Disposition Patient Disposition: Xfer Other Chief Complaint: Fall Prescriptions Prescriptions: No Action multivitamin,[id number]-[id number] [Complete Multivitamin] tablet 1 tab PO QDAY acetaminophen [Tylenol] 325 mg tablet 325 mg PO QID PRN norethindrone ac-eth estradiol 1-5 mg-mcg tablet See Rx Instructions .ROUTE .COMPLEX Qty: 90 0RF Dose Instruction: TAKE 1 TABLET BY MOUTH DAILY Rx Instructions: TAKE 1 TABLET BY MOUTH DAILY ergocalciferol (vitamin D2) 1,250 mcg (50,000 unit) capsule See Rx Instructions .ROUTE .COMPLEX Qty: 13 4RF Dose Instruction: TAKE 1 CAPSULE BY MOUTH WEEKLY Rx Instructions: TAKE 1 CAPSULE BY MOUTH WEEKLY lisinopril 40 mg tablet 40 mg PO DAILY Qty: 90 3RF propranolol 10 mg tablet 10 mg PO BID Qty: 60 2RF furosemide [Lasix] 40 mg tablet 40 mg PO DAILY PRN (Reason: edema) Qty: 30 2RF Referrals Follow up/Referrals: Marie Bates APRN [Primary Care Provider] - See instructions Clinical Impressions Clinical Impression: Fall, Closed fracture of neck of left femur Discharge ED Provider: Mayela Jones General Adult HPI General Chief complaint: Fall Stated complaint: AO 1830 left leg pain Time Seen by Provider: 12/07/23 19:54 Mode of Arrival: Wheelchair Source of Information: Patient and Significant Other Limitations: No Limitations Description of Symptoms (Recalled from ER Triage Doc. by RN): Pt took a fall in the basement at approx 1830 per . No LOC, pt states she did hit her right temporal lobe on dryer door and landed on her left hip. Pt was assisted to w/c and bed by staff. Pt has brusing to left arm but only complaining of pain in her left hip. Denies BUSBY, nausea or vomiting. Pt is on daily baby ASA History of Present Illness HPI narrative: Patient is an 84-year-old female presents today with left hip pain after mechanical fall. She also hit her head but denies any significant pain associate with that. Not on any anticoagulants that she is aware of. She has severe pain in her left hip has been unable to ambulate since that time. Denies any pain elsewhere Related Data Home Medications Medication Instructions Recorded Confirmed multivitamin,wi-kpsx-bdmruoxy 1 tab PO QDAY 08/15/17 11/30/23 (Complete Multivitamin tablet) acetaminophen 325 mg tablet 325 mg PO QID PRN 09/20/21 11/30/23 (Tylenol) Previous Rx's Medication Instructions Recorded norethindrone acetate 1 mg-ethinyl See Rx Instructions .Route 04/25/23 estradiol 5 mcg tablet .COMPLEX #90 tabs ergocalciferol (vitamin D2) 1,250 See Rx Instructions .Route 11/08/23 mcg (50,000 unit) capsule .COMPLEX #13 caps lisinopril 40 mg tablet 40 mg PO DAILY #90 tabs 11/08/23 propranolol 10 mg tablet 10 mg PO BID #60 tabs 11/08/23 furosemide 40 mg tablet (Lasix) 40 mg PO DAILY PRN edema #30 tabs 11/30/23 Allergies Allergy/AdvReac Type Severity Reaction Status Date / Time codeine Allergy Mild Verified 11/30/23 14:27 Sulfa (Sulfonamide Allergy Mild Verified 11/30/23 14:27 Antibiotics) [facility] Disclaimer: The information contained in this section may have been updated after the patient was seen, as this information can be updated by other users. Medical History Fatigue COPD (chronic obstructive pulmonary disease) Essential tremor Primary osteoarthritis of feet, bilateral Hammertoes of both feet Acquired hallux valgus of both feet Pain due to onychomycosis of toenails of both feet Closed fracture of left proximal humerus Hearing impairment Tobacco use Low body mass index (BMI) Vitamin D deficiency Hypertension Surgical History No significant past surgical history Family History Other No significant family history Social History Smoking Status: Current every day smoker tobacco type: cigarettes packs per day: 1 alcohol intake: never substance use type: denies use current occupational status: retired Travel in the last 8 weeks: None household members: significant other housing: house ROS Obtained: Yes All systems reviewed & no additional complaints except as documented Physical Exam General General appearance: alert and in no apparent distress Respiratory Respiratory exam: Present normal lung sounds bilaterally Cardiovascular Cardiovascular exam: Present regular rate and normal rhythm Extremities Exam Extremities exam: Present other (Patient's left lower extremity is shortened and externally rotated and severely painful with any type of movement with internal/external rotation or flexion or extension or palpation neurovascular intact) Neurological Exam Neurological exam: Present alert and oriented X3 Medical Decision Making Ravi Inquiry Pt receiving controlled substance: No Vital Signs: 12/07/23 19:27 12/07/23 19:51 Temperature 98.2 F 98.2 F Temperature Source Oral Oral Pulse Rate 90 Pulse Rate [Left] 88 Respiratory Rate 18 18 Blood Pressure 150/84 H Blood Pressure [Right Arm] 188/91 H Blood Pressure Mean [Right Arm] 123 Blood Pressure Source Automatic Cuff Blood Pressure Source [Right Arm] Automatic Cuff Blood Pressure Position Sitting Blood Pressure Position [Right Arm] Sitting 02 Sat by Pulse Oximetry 96 95 Oxygen Delivery Method Room Air Room Air Lab Data Lab results reviewed: Yes I reviewed the patient's lab results. Lab Results 12/07/23 20:08: WBC 14.7 H, RBC 4.33, Hgb 13.2, Hct 40.4, MCV 93.2, MCH 30.4, MCHC 32.6, RDW 13.8, Plt Count 373, MPV 7.6, Neut % (Auto) 83.1 H, Lymph % (Auto) 8.8 L, [place] % (Auto) 5.5, Eos % (Auto) 1.9, Baso % (Auto) 0.7, Neut # (Auto) 12.3 H, Lymph # (Auto) 1.3, [place] # (Auto) 0.8, Eos # (Auto) 0.3, Baso # (Auto) 0.1, PT 10.7, INR 0.99, APTT 26.7, Sodium 129 L, Potassium 4.2, Chloride 95 L, Carbon Dioxide 27, Anion Gap 11.2, BUN 11, Creatinine 0.80, Estimated Creat Clear 27, Estimated GFR 69, Est GFR ( Amer) 83, Glucose 105 H, Calcium 9.4, Total Bilirubin 0.7, AST 45 H, ALT 30, Alkaline Phosphatase 112, Total Protein 6.9, Albumin 4.2, Globulin 2.7, Albumin/Globulin Ratio 1.6 12/07/23 20:08 12/07/23 20:08 Orders (Tests/Meds): ED MEDICATIONS Discontinued Medications Generic Name Dose Route Start Last Admin Trade Name Freq PRN Reason Stop Dose Admin Morphine Sulfate 2 mg 12/07/23 19:57 12/07/23 20:15 Morphine 4mg/Ml Syringe IV 12/07/23 19:58 2 mg ONCE ONE Administration Morphine Sulfate 2 mg 12/07/23 20:33 12/07/23 20:39 Morphine 2mg/Ml Syringe IV 12/07/23 20:34 2 mg ONCE ONE Administration ORDERS Category Date Time Status CT bony pelvis Stat Cat Scan 12/07/23 20:[address] cervical spine wo con Stat Cat Scan 12/07/23 19:[address] head/brain wo con Stat Cat Scan 12/07/23 19:57 Taken CXR --portable [XR chest portable] Stat Exams 12/07/23 19:58 Taken Hip XR left minimum 2 views [XR hip LT 2-3V w/pelvis] Exams 12/07/23 19:57 Taken Stat CBC w/Auto Diff [Complete Blood Count Auto Diff] Stat Lab 12/07/23 20:08 Completed CMP [Comprehensive Metabolic Panel] Stat Lab 12/07/23 20:08 Completed PT/PTT Stat Lab 12/07/23 20:08 Completed Medical Decision Narrative: 83-year-old female presenting today with the following significant left hip injury suspicious for dislocation versus fracture. Will get plain films to further evaluate this. Also she fell and hit her head she is 83 she has a GCS of 15 with a normal neurologic exam but will get CT scans to rule out any significant cervical spine or head injury. Pain medicine will be administered and will reassess. Reassessment 9 PM x-ray demonstrates by my personal interpretation left femoral neck fracture. Given her orthopedic surgeons preference here we obtained a bony pelvis CT scan for operative planning and also preoperative labs. However I was able to speak to orthopedic surgeon he is going out of town and will be available for an operation over the next few days therefore she needs to be transferred to the hospital for surgical intervention. I spoke with Dr. [facility] who accepted the patient to the [place] emergency department for further evaluation and management. She remained stable she has required multiple doses of opiates for pain control. Critical Care Critical Care Time Critical Care Time: Yes Attestation: On 12/07/23, the high probability of a clinically significant, sudden or life threatening deterioration of the following system(s) required my full and direct attention, intervention and personal management. The time I documented below is in addition to time spent performing reported procedures but includes the following listed in this critical care notation. Total Time Total Critical Care Time: 35
[2023-12-07] MEDS: MORPHINE 4MG/ML SYRINGE 2 MG IV (20:15)
[2023-12-07 20:23] LABS: Basophils # 0.1 K/mm3 (0-0.2); Basophils % 0.7 % (0.1-2.0); Eosinophils # 0.3 K/mm3 (0.0-0.4); Eosinophils % 1.9 % (0.1-12.0); Hematocrit 40.4 % (37.0-47.0); Hemoglobin 13.2 g/dL (12.2-16.2); Lymphocytes # 1.3 K/mm3 (0.7-4.5); Lymphocytes % 8.8 % (10-50); Mean Corpuscular HGB Conc 32.6 g/dL (31.8-35.4); Mean Corpuscular Hemoglobin 30.4 pg (27.0-31.2); Mean Corpuscular Volume 93.2 fl (81-99); Mean Platelet Volume 7.6 fl (7.4-10.4); Monocytes # 0.8 K/mm3 (0.1-1.0); Monocytes % 5.5 % (1.7-9.3); Neutrophils # 12.3 K/mm3 (1.8-7.8); Neutrophils % 83.1 % (37.0-80.0); Platelet Count 373 K/mm3 (142-424); Red Blood Count 4.33 M/mm3 (4.20-5.40); Red Cell Distribution Width 13.8 % (11.5-17.5); White Blood Count 14.7 K/mm3 (4.8-10.8)
--- NOTE | 2023-12-07 20:23 | CT_ITS ---
PROCEDURE INFORMATION: Exam: CT Pelvis Without Contrast; Skeletal Exam date and time: 12/07/2023 8:29 PM Age: 83 years old Clinical indication: Hip pain and pelvic pain; Left hip; Additional info: F/u abnormal XR, operative planning TECHNIQUE: Imaging protocol: Computed tomography of the pelvis without contrast. Exam focused on the skeleton. Radiation optimization: All CT scans at this facility use at least one of these dose optimization techniques: automated exposure control; mA and/or kV adjustment per patient size (includes targeted exams where dose is matched to clinical indication); or iterative reconstruction. COMPARISON: CR XR HIP LT 2-3V W/PELVIS 12/07/2023 8:10 PM FINDINGS: Liver: Subcentimeter hypodense foci within the right hepatic lobe and right kidney, too small to fully characterize, although most likely represent cysts. Gallbladder and bile ducts: Mildly dilated common bile duct. Bones/joints: Complete left subcapital femoral neck fracture. Anterior/superior displacement and external rotation of the femur distal to the fracture. Left hip joint effusion. Bilateral hip osteoarthritis. Moderate levoconvex curvature and severe degenerative changes of the lumbar spine. Soft tissues: Minimal left posterolateral left hip subcutaneous soft tissue swelling. IMPRESSION: Complete left subcapital femoral neck fracture. Anterior/superior displacement and external rotation of the femur distal to the fracture. COMMENTS: Consistent with the [employer]'s Incidental Findings Committee white paper (J Am Ray Radiol 2018): Any incidental renal lesion less than 1 cm or classified as too small to characterize, or any incidental cystic renal lesion characterized as simple-appearing, is likely benign. No follow-up imaging is recommended for these lesions per consensus recommendations based on imaging criteria.
[2023-12-07 20:27] LABS: Chloride 95 mmol/L (98-107); Potassium 4.2 mmoL/L (3.5-5.1); Sodium 129 mmol/L (136-145)
[2023-12-07 20:29] LABS: Blood Urea Nitrogen 11 mg/dl (7-17); Creatinine Clearance Estimated 27 mL/min (50-200); Estimated Glomerular Filt Rate 69 ml/min (>60); GFR (African American) 83 ML/MIN (>60)
[2023-12-07 20:30] LABS: Alanine Aminotransferase 30 U/L (12-78); Albumin Level 4.2 g/dl (3.5-5.0); Albumin/Globulin Ratio 1.6 (1.1-1.8); Alkaline Phosphatase 112 U/L (38-126); Anion Gap 11.2 mEq/L (5-15); Aspartate Amino Transferase 45 U/L (14-36); Bilirubin,Total 0.7 mg/dl (0.2-1.3); Calcium 9.4 mg/dl (8.4-10.2); Carbon Dioxide 27 mmol/L (22.0-30.0); Globulin 2.7 g/dL (1.3-3.2); Glucose 105 mg/dl (74-100); Total Protein,Serum 6.9 g/dl (6.3-8.2)
[2023-12-07 20:32] LABS: Activated Partial Thrombo Time 26.7 seconds (22.8-30.6); INR 0.99 (0.9-1.1); Prothrombin Time 10.7 seconds (10.1-12.5)
[2023-12-07] MEDS: MORPHINE 2MG/ML SYRINGE 2 MG IV (20:39)
--- NOTE | 2023-12-07 20:57 | PC.NURSE ---
spoke with lynn carrillo: [facility].
--- NOTE | 2023-12-07 20:57 | PC.NURSE ---
call [facility] to for possible transfer. dx: femoral neck fx. no ortho avail here.
--- NOTE | 2023-12-07 21:01 | ECG_ITS ---
APPROVED REPORT Exam: Resting ECG HR:90 bpm ECG Measurements Heart Rate 90 AXES UT 170 P 73 QRSd 76 QRS -66 QT 360 T 76 QTc 407 Conclusion SINUS RHYTHM POSSIBLE LEFT ATRIAL ENLARGEMENT [-0.1mV P-WAVE IN V1/V2] LEFT AXIS DEVIATION [QRS AXIS < -30] LOW QRS VOLTAGE IN PRECORDIAL LEADS [QRS DEFLECTION < 1.0 mV IN CHEST LEADS] POSSIBLE RIGHT VENTRICULAR CONDUCTION DELAY [RSR (QR) IN V1/V2] ST ELEVATION, CONSIDER INFERIOR INJURY [MARKED ST ELEVATION W/O NORMALLY INFLECTED T-WAVE IN II/aVF] ACUTE MT UNCONFIRMED REPORT Electronically signed by : Chance Jones, 12/07/2023 23:05:02
[2023-12-07] MEDS: MORPHINE 4MG/ML SYRINGE 4 MG IV (21:34)
[2023-12-07] MEDS: ONDANSETRON 4MG/2ML VIAL 4 MG IV (21:53)
--- NOTE | 2023-12-07 22:32 | PC.NURSE ---
Pt placed on 2l/nc, room air sat 88% while sleeping.
[2023-12-08 00:14] VITALS: BP 130/62; PULSE 80; RESP 14; TEMP 36.8; O2SAT 97
[2023-12-08] MEDS: ONDANSETRON 4MG/2ML VIAL 4 MG IV (00:23)
== END 2023-12-08 00:24 | disposition other institution (70) ==
PROVIDERS: Emergency Provider Student in an Organized Health Care Education/Training Program; PCP Family Medicine
DX: S72.042A Displaced fracture of base of neck of left femur, initial encounter for closed fracture (principal); S72.012A Unspecified intracapsular fracture of left femur, initial encounter for closed fracture; E87.1 Hypo-osmolality and hyponatremia; F17.210 Nicotine dependence, cigarettes, uncomplicated; J44.9 Chronic obstructive pulmonary disease, unspecified; I10 Essential (primary) hypertension; W19.XXXA Unspecified fall, initial encounter
CPT/HCPCS: 70450; 71045; 72125; 72192; 73502; 80053; 85025; 85610; 85730; 93005; 96374; 96375; 96376; 99285; J2405

== ENCOUNTER 2025-07-16 08:34 | Outpatient (CLI) | payer MEDICARE, SELFPAY ==
[2025-07-16 15:08] LABS: Hematocrit 39.6 % (37.0-47.0); Hemoglobin 12.6 g/dL (12.2-16.2); Immature Granulocytes % 0.1 %; Mean Corpuscular HGB Conc 31.8 g/dL (31.8-35.4); Mean Corpuscular Hemoglobin 29.0 pg (27.0-31.2); Mean Corpuscular Volume 91.0 fl (81-99); Nucleated Red Blood Cells % 0 %; Platelet Count 308 K/mm3 (142-424); Red Blood Count 4.35 M/mm3 (4.20-5.40); Red Cell Distribution Width-SD 42.1 fL; White Blood Count 7.1 K/mm3 (4.8-10.8)
[2025-07-16 15:34] LABS: Alanine Aminotransferase 15 U/L (12-78); Albumin Level 4.3 g/dl (3.5-5.0); Albumin/Globulin Ratio 1.7 (1.1-1.8); Alkaline Phosphatase 110 U/L (38-126); Anion Gap 10.0 mEq/L (5-15); Aspartate Amino Transferase 28 U/L (14-36); Bilirubin,Total 0.6 mg/dl (0.2-1.3); Blood Urea Nitrogen 17 mg/dl (7-17); Calcium 9.2 mg/dl (8.4-10.2); Carbon Dioxide 31 mmol/L (22.0-30.0); Chloride 99 mmol/L (98-107); Cholesterol 234 mg/dl (140-200); Creatinine,Serum 0.90 mg/dl (0.52-1.04); Estimated Glomerular Filt Rate 60 ml/min (>60); GFR (African American) 72 ML/MIN (>60); Globulin 2.6 g/dL (1.3-3.2); Glucose 91 mg/dl (74-100); HDL Cholesterol 105 mg/dl (40-60); Potassium 5.0 mmoL/L (3.5-5.1); Sodium 135 mmol/L (136-145); Total Protein,Serum 6.9 g/dl (6.3-8.2); Triglycerides 90 mg/dl (30-150)
[2025-07-16 15:48] LABS: 25-OH Vitamin D, Total 35.3 ng/mL (30-100)
[2025-07-16 16:02] LABS: Thyroid Stimulating Hormone 0.86 uIU/mL (0.465-4.68)
--- OUTSIDE RECORDS SUMMARY | 2025-07-18 08:37 | XMS_ITS | Clinical Summary ---
Author Organization Healthcare Address [address] 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 Active Multiple Vitamin (multivitamin) tablet Take 1 tablet by mouth 1 (one) time each day. Active propranolol (Inderal) 10 MG tabletIndicatio ns:Essential Tremor Take 1 tablet (10 mg) by mouth 2 (two) times a day. Active lisinopril 20 MG tablet Take 1 tablet (20 mg) by mouth 1 (one) time each day. 4 Active acetaminophen (Tylenol) 325 MG tablet Take 2 tablets (650 mg) by mouth every 6 (six) hours. 4 Active calcium carbonate (Tums Ultra) 1000 MG chewable tablet Chew 1 tablet (1,000 mg) 1 (one) time each day. 4 Active cholecalciferol (Vitamin D-3) 25 MCG (1000 UT) tablet Take 1 tablet (1,000 Units) by mouth 1 (one) time each day. 4 Active lidocaine (Lidoderm) 5 % patch Apply 1 patch topically 1 (one) time each day at the same time over 12 hours. Remove & discard patch within 12 hours or as directed by MD. 4 Active methocarbamol (Robaxin) 500 MG tablet Take 1 tablet (500 mg) by mouth 3 (three) times a day. 4 Active nicotine (Nicoderm CQ) 14 MG/24HR patch Place 1 patch on the skin 1 (one) time each day for 36 doses. 4 Active oxyCODONE (Roxicodone) 5 MG immediate release tablet Take 1 tablet (5 mg) by mouth 2 (two) times a day if needed for moderate pain or severe pain. 2 tablet 4 Active polyethylene glycol (Miralax) 17 g packet Take 17 g by mouth 1 (one) time each day if needed (constipation) . 4 Active senna (Senokot) 8.6 MG tablet Take 2 tablets (17.2 mg) by mouth every night. 4 Active Active Problems Problem Noted Date Diagnosed Date Closed fracture of neck of left femur 12/07/2023 Resolved Problems Problem Noted Date Diagnosed Date Resolved Date Fall 12/11/2023 12/13/2023 Other fracture of left femur , initial encounter for closed fracture 12/08/2023 12/13/2023 Social History Tobacco Use Types Packs/Day Years Used Date Smoking Tobacco: Every Day Cigarettes 0.5 65.6 Started: [birth year]/08/1958 Smokeless Tobacco: Never Tobacco Cessation:Ready to Q uit: Not Asked; Counseling Given: Not Answered Alcohol Use Standard Drinks/Week Comments Never 0 (1 standard drink = 0.6 oz pur e alcohol) Humiliation, Afraid, Rape, and Kick questionnair e Answer Date Recorded Within the last year, have y ou been afraid of your partner or ex-partner? No 12/12/2023 Within the last year, have y ou been humiliated or emotionally abused in other ways by your partner or ex-partner? No Within the last year, have y ou been kicked, hit, slapped, or otherwise physically hurt by your partner or ex-partner? No 12/12/2023 Within the last year, have y ou been raped or forced to have any kind of sexual activity by your partner or ex-partner? No 12/12/2023 PHQ-2 Answer Date Recorded Patient Health Questionnaire-2 Score 0 12/28/2023 Hunger Vital Sign Answer Date Recorded Within the past 12 months, y ou worried that your food would run out before you got the money to buy more. Never true 12/12/19 Within the past 12 months, t he food you bought just didn't last and you didn't have money to get more. Never true 12/12/2023 PRAPARE - Transportation Answer Date Re corded In the past 12 months, has l ack of transportation kept you from medical appointments or from getting medications? No 11/15 In the past 12 months, has l ack of transportation kept you from meetings, work, or from getting things needed for daily living? No 12/12/2023 Housing Stability Vital Sign Answer Beto e Recorded In the last 12 months, was t here a time when you were not able to pay the mortgage or rent on time? No 12/12/2023 In the last 12 months, how many places have you lived? 1 12/12/2023 In the last 12 months, was t here a time when you did not have a steady place to sleep or slept in a assisted (including now)? No 12/12/2023 CAGE ASSESSMENT Answer Date Recorded Cage unable to access Not on file 12/08/2023 Cage max number of drinks Not on file 2023 Cage Beverages a week Not on file 12/08/2023 Have you ever felt you should CUT down on your d rinking? 0 12/08/2023 Have you been ANNOYED by people criticizing your drinking? 0 12/08/2023 Have you felt GUILTY about your drinking? 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 0 12/08/2023 CAGE Questionnaire Score 0 024 Utilities Answer Date Recorded In the past 12 months has th e electric, gas, oil, or water company threatened to shut off services in your home? No 12/12/2023 Comments No Sex and Gender Information Value Date Recorded Sex Assigned at Female 12/08/2023 6:41 AM EDT Legal Sex Female 8:56 PM EDT Gender Identity Not on file Sexual Orientation Not on file Last Filed Vital Signs Vital Sign Reading Time Taken Comments Blood Pressure 157/83 01/31/2024 11:56 AM EDT Pulse 86 01/31/2024 11:56 AM EDT Temperature 36.6 C (97.9 F) 01/31/2024 11:56 AM EDT Respiratory Rate 16 12/14/2023 8:17 AM EDT Oxygen Saturation 98% 01/31/2024 11:56 AM EDT Inhaled Oxygen Concentration - - Weight 41.7 kg (92 lb) 01/31/2024 11:56 AM EDT Height 157.5 cm (5' 2 ) 01/31/2024 11:56 AM EDT Body Mass Index 16.83 01/31/2024 11:56 AM EDT Plan of Treatment Health Maintenance Due Date Last Done Comments [facility]-Bone Density Scan 1941 [facility]-Medicare Annual Wellness (AWV) 1941 [facility]-Infant/Child/Adol SDOH Screenings 1941 [facility]- SDOH Screenings 1959 [facility]-Adult SDOH Screenings 1959 [facility]-DTaP,Tdap,and Td Vaccines (1 - Tdap) 01/02/1960 [facility]-Zoster Vaccines (1 of 2) 1991 [facility]-RSV Vaccine: 60+ Years or (1 - 1-dose 75+ series) 01/02/2016 [facility]-Pneumococcal Vaccine: 50+ Years (2 of 2 - PPSV23, PCV20, or PCV21) 05/26/2017 03/31/2017 [facility]-Depression Screening 12/27/2024 12/28/2023 [facility]-ILQGN-14 Vaccine ( season) 2025 04/26/2022, 12/10/2021, 05/09/2021, Additional history exists [facility]-Influenza Vaccine (#1) 03/17/202504/03, 03/13/2021, 04/03/2020, Additional history exists [facility]-Diabetes: Hemoglobin A1C Discontinued 12/08/2023 HPV Vaccines (No Doses Required) Completed [facility]-HIB Vaccines Aged Out No longer e ligible based on patient's age to complete this topic [facility]-Hepatitis A Vaccines Aged Out No longer eligible based on patient's age to complete this topic [facility]-IPV Vaccines Aged Out No longer e ligible based on patient's age to complete this topic [facility]-Rotavirus Vaccines Aged Out No lo nger eligible based on patient's age to complete this topic Medical Devices Implanted Type Area Hearing Aid Technician Device Identifier Shelf Expiration Date Model / Serial / Lot Chg Head Unipolar 45mm - [id number] Implanted:Qty: 1 on 12/08/2023 by Timmy Recinos MD at [facility] Joint Left: Hip [employer]orta [id number] 03/06/2033 [id number] / / [id number] Chg Sleeve Unipolar 06/29 Tape - [id number] Implanted:Qty: 1 on 12/08/2023 by Timmy Recinos MD at [facility] Joint Left: Hip [id number] 08/21/2033 [id number] / / [id number] Chg Stem Syn Por Plus Grider So Sz - [id number] Implanted:Qty: 1 on 12/08/2023 by Timmy Recinos MD at [facility] Joint Left: Hip [id number] 09/17/2032 [id number] / / [id number] Procedures Procedure Name Priority Date/Time Associated Diagnosis Comments HEMOGLOBIN A1C Add-On 12/08/2023 3:35 AM EDT from Last 3 Months or Most Recently Relevant to Health Maintenance Results * (ABNORMAL) Hemoglobin A1c (12/08/2023 3:35 AM EDT) Hemoglobin A1c 6.1(H) <5.7 % 12/08/2023 12:14 PM EDT [facility] Blood Venous blood specimen / Unknown Venipuncture / Unknown 12/08/2023 3:35 AM EDT 12/08/2023 3:58 AM EDT Narrative [facility] - 12/08/2023 12:14 PM EDT HA1C Interpretive Data: Diagnosis of Diabetes: Diabetic > or = 6.5% Pre-diabetic 5.7 to 6.4% Non-diabetic < or = 5.6% Glycemic Targets for Type I and Type II Diabetics: Non- Adults <7.0% Adults <6.0% Children and Adolescents <7.5% Source: [place] [employer]. Standards of medical care in diabetes,2017. Diabetes Care.2017:40 (suppl 1):S1-S135. HbA1c assay performed by an ion-exchange chromatography method that is certified traceable to the DCCT. Terrell Bernal FIRST ASSISTANT LAB BLOOD ORDERABLES Final Result [facility] [address] [place] [address] from Last 3 Months or Most Recently Relevant to Health Maintenance Insurance MEDICARE [facility] Advance Directives * Full Code (Latest Code Status on File) Date Activated Date Inactivated Comments 12/08/2023 3:54 AM 12/14/2023 3:03 PM Question Answer Comments Patient has decision-making capacity? Yes Care Teams School Transportation Supervisor Relationship Specialty Start Date End Date Pcp, No [address] [place] [address] PCP - General Family Medicine 12/08/23
== END 2025-07-16 23:59 | disposition home or self-care (01) ==
LOC: LAB.DROPOF 07-18 08:35
PROVIDERS: PCP Student in an Organized Health Care Education/Training Program; Visit Provider Family Medicine
DX: E55.9 Vitamin D deficiency, unspecified (principal); I10 Essential (primary) hypertension
CPT/HCPCS: 80053; 80061; 82306; 84443; 85025